=== PATIENT | male | born 1950 | race Caucasian/White ===

== ENCOUNTER → 2017-03-06 | Outpatient (CLI) | payer BC ==
[~2017-03-06] MED LIST: DOCUSATE SODIU250 MG PO; ELIQUIS2.5 MG PO; IBUPROFEN800 MG PO; LIPITOR TAB 2020 MG PO; OMEPRAZOLE40 MG PO; PERCOCET 5-3251 EACH PO; VALSARTAN-HCTZ1 EACH PO; VITAMIN B12-FO1 EACH PO; VITAMIN D5000 UNIT PO
== END ==
LOC: EMI 13:33
DX: S83.206A Unspecified tear of unspecified meniscus, current injury, right knee, initial encounter (principal); M17.11 Unilateral primary osteoarthritis, right knee; S83.281A Other tear of lateral meniscus, current injury, right knee, initial encounter; S83.241A Other tear of medial meniscus, current injury, right knee, initial encounter; M94.261 Chondromalacia, right knee; M71.21 Synovial cyst of popliteal space [Baker], right knee
CPT/HCPCS: 73721

== ENCOUNTER → 2017-03-25 | Outpatient (CLI) | payer BC ==
[2017-03-25 09:45] LABS: HEMOGLOBIN 14.5 gm/dl (14.0-17.5); RED BLOOD COUNT 5.02 M/UL (4.20-5.50); WHITE BLOOD COUNT 5.1 K/UL (4.5-11.0)
[2017-03-25 10:01] LABS: BUN/CREATININE RATIO 26 (0-10)
== END ==
LOC: OPSV2 08:41
PROVIDERS: Orthopaedic Surgery
DX: Z01.810 Encounter for preprocedural cardiovascular examination (principal); Z01.812 Encounter for preprocedural laboratory examination; Z01.818 Encounter for other preprocedural examination; M17.11 Unilateral primary osteoarthritis, right knee
CPT/HCPCS: 36415; 71020; 80048; 81001; 85025; 87081; 93005

== ENCOUNTER → 2017-04-06 | Outpatient (CLI) | payer BC ==
[2017-04-06 11:59] LABS: BUN/CREATININE RATIO 15 (0-10)
== END ==
LOC: LAB 10:41
PROVIDERS: Orthopaedic Surgery
DX: Z01.818 Encounter for other preprocedural examination (principal)
CPT/HCPCS: 36415; 80048; 86850; 86900; 86901

== ENCOUNTER 2017-04-07 05:58 | Inpatient (IN) | payer BC ==
[~2017-04-07] VITALS: Ht 172.7 cm; Wt 73.5 kg
[2017-04-07] MEDS ORDERED: VALSARTAN-HCTZ1 EACH PO (06:35)
[2017-04-07] MEDS ORDERED: LIPITOR TAB 2020 MG PO (06:35)
[2017-04-07] MEDS ORDERED: IBUPROFEN800 MG PO (06:36)
[2017-04-07] MEDS ORDERED: OMEPRAZOLE40 MG PO (06:36)
[2017-04-07] MEDS ORDERED: VITAMIN B12-FO1 EACH PO (06:37)
[2017-04-07] MEDS ORDERED: VITAMIN D5000 UNIT PO (06:37)
[2017-04-08 05:25] LABS: HEMOGLOBIN 12.2 gm/dl (14.0-17.5); RED BLOOD COUNT 4.25 M/UL (4.20-5.50); WHITE BLOOD COUNT 8.2 K/UL (4.5-11.0)
[2017-04-08 05:50] LABS: BUN/CREATININE RATIO 13 (0-10)
[2017-04-08] MEDS ORDERED: ELIQUIS2.5 MG PO (12:13)
[2017-04-08] MEDS ORDERED: DOCUSATE SODIU250 MG PO (12:14)
[2017-04-08] MEDS ORDERED: PERCOCET 5-3251 EACH PO (12:15)
== END 2017-04-08 10:34 | disposition home health service (06) | DRG 470 ==
LOC: ZOBSOF 05:58 → M/S 13:19
PROVIDERS: ADMIT Orthopaedic Surgery
PROC: 0SRC0J9 Replacement of Right Knee Joint with Synthetic Substitute, Cemented, Open Approach (ICD-10-PCS; principal; 2017-04-07 07:30)
DX: M17.11 Unilateral primary osteoarthritis, right knee (principal); I10 Essential (primary) hypertension; E78.5 Hyperlipidemia, unspecified; K21.9 Gastro-esophageal reflux disease without esophagitis; Z85.828 Personal history of other malignant neoplasm of skin; Z83.3 Family history of diabetes mellitus; Z82.3 Family history of stroke; Z80.51 Family history of malignant neoplasm of kidney; K59.00 Constipation, unspecified; R20.9 Unspecified disturbances of skin sensation; Z88.0 Allergy status to penicillin; Z88.2 Allergy status to sulfonamides; Z79.1 Long term (current) use of non-steroidal anti-inflammatories (NSAID); Z79.899 Other long term (current) drug therapy
CPT/HCPCS: 36415; 73560; 80048; 85027; 97110; 97116; 97530; C1713; C1776; J2250; J2270; J2405; J3010; J7050; J7120

== ENCOUNTER → 2022-05-23 | Outpatient (CLI) | payer MEDICARE | LOC: EXRD 13:47 | DX: E04.1 Nontoxic single thyroid nodule (principal) | CPT/HCPCS: 76536 ==